=== PATIENT | female | born 1975 | race Caucasian/White ===

== ENCOUNTER 2017-01-11 13:07 | Emergency (ER) | payer MEDICAID, OTHER ==
[~2017-01-11] VITALS: Ht 170.2 cm; Wt 65.8 kg
[~2017-01-11 13:07] MED LIST: ALPR0.5T96 PO; HYDR-4100 PO; LEVO50TA8 PO
[2017-01-11 13:30] VITALS: BP 99/55; PULSE 89; RESP 18; TEMP 97; O2SAT 96
--- NOTE | 2017-01-11 13:57 | NUR ---
Patient to ER -1 for evaluation. Side rails up. Report given to Precious.
--- NOTE | 2017-01-11 14:10 | NUR ---
Dr Green at bedside examining patient
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
[2017-01-11] MEDS ORDERED: KETOROLAC TROMETHAMINE 60 MG/2 ML VIAL IM ONE (14:15)
[2017-01-11] MEDS ORDERED: ACETAMINOPHEN 325 MG TABLET PO ONE (14:15)
[2017-01-11] MEDS ORDERED: MORPHINE 4 MG/ML INJ. SYRINGE IM ONE (15:30)
[2017-01-11] MEDS ORDERED: ONDANSETRON 4 MG ODT TAB PO ONE (15:30)
--- NOTE | 2017-01-11 15:36 | NUR ---
Unable to administer morphine at this time, Pt BP 92/65
[2017-01-11 16:09] VITALS: BP 92/65; PULSE 89; RESP 18; TEMP 97; O2SAT 96
--- NOTE | 2017-01-11 16:09 | NUR ---
Patient given written and verbal discharge instructions and verbalizes understanding. ER MD Dr. Green discussed with patient the results and treatment provided. Given copies of tests performed in ER. Patient in stable condition. ID arm band removed. Rx of Tramadol and Motrin 600 given. Patient educated on pain management and to follow up with PMD. Pain Scale 2/10. Opportunity for questions provided and answered.
== END 2017-01-11 16:09 | disposition home or self-care (01) ==
LOC: SED 13:07
DX: S92.352A Displaced fracture of fifth metatarsal bone, left foot, initial encounter for closed fracture (principal); S43.51XA Sprain of right acromioclavicular joint, initial encounter; K80.80 Other cholelithiasis without obstruction; Z88.1 Allergy status to other antibiotic agents; Z88.8 Allergy status to other drugs, medicaments and biological substances; X58.XXXA Exposure to other specified factors, initial encounter; Y93.89 Activity, other specified; Y92.89 Other specified places as the place of occurrence of the external cause; Y99.8 Other external cause status
CPT/HCPCS: 29105; 29515; 73030; 73610; 73630; 96372; 99284; J1885; J2270; Q0162

== ENCOUNTER 2018-06-29 16:24 | Emergency (ER) | payer MEDICAID, OTHER ==
[~2018-06-29] VITALS: Ht 167.6 cm; Wt 72.6 kg
[~2018-06-29 16:24] MED LIST changes: +ALPR0.5T PO; -ALPR0.5T96 PO
[2018-06-29 16:49] VITALS: BP_SYST 107
[2018-06-29] MEDS ORDERED: ONDANSETRON 4 MG ODT TAB PO ONE (17:00)
[2018-06-29] MEDS ORDERED: HYDROcodone/ACETAMIN 5-325 MG TAB (NORCO/ VICODIN) PO ONE (19:15)
[2018-06-29 19:48] VITALS: BP_SYST 105
== END 2018-06-29 19:48 | disposition home or self-care (01) ==
LOC: SED 16:24
DX: S06.9X9A Unspecified intracranial injury with loss of consciousness of unspecified duration, initial encounter (principal); E03.9 Hypothyroidism, unspecified; Z88.1 Allergy status to other antibiotic agents; Z88.8 Allergy status to other drugs, medicaments and biological substances; W18.09XA Striking against other object with subsequent fall, initial encounter; Y93.89 Activity, other specified; Y92.002 Bathroom of unspecified non-institutional (private) residence as the place of occurrence of the external cause; Y99.8 Other external cause status
CPT/HCPCS: 70450; 72125; 81025; 99284; Q0162